=== PATIENT | male | born 1985 | race Caucasian/White ===

== ENCOUNTER 2017-03-12 04:13 | Emergency (ER) | payer OTHER ==
[~2017-03-12] VITALS: Ht 182.9 cm; Wt 81.2 kg
[2017-03-12] MEDS ORDERED: ACETAMINOPHEN 325 MG TABLET PO ONE (05:00)
[2017-03-12] MEDS ORDERED: KETOROLAC 30 MG/1 ML ONE (05:09)
[2017-03-12] MEDS ORDERED: ACETAMINOPHEN 325 MG TABLET ONE (05:14)
[2017-03-12] MEDS ORDERED: KETOROLAC 30 MG/1 ML IVPush ONE (05:30)
[2017-03-12] MEDS ORDERED: SODIUM CHLORIDE 0.9% 1,000ML IVBOLUS ONE (05:30)
[2017-03-12] MEDS ORDERED: SODIUM CHLORIDE FLUSH 10ML SYR IVF ONE (05:30)
[2017-03-12 06:16] LABS: HEMATOCRIT 42.2 % (39.2-51.8); HEMOGLOBIN 14.6 g/dL (13.7-18.0); WHITE BLOOD COUNT 6.4 x10^3/uL (3.4-10)
[2017-03-12 06:22] LABS: ASPARTATE AMINO TRANSFERASE 50 U/L (15-37); BLOOD UREA NITROGEN 11 mg/dL (7-18)
[2017-03-12 06:26] LABS: RAPID INFLUENZA A POSITIVE (Negative)
[2017-03-12 06:27] LABS: RAPID INFLUENZA B Negative (Negative)
[2017-03-12 07:13] VITALS: BP 102/61
== END 2017-03-12 07:22 | disposition home or self-care (01) ==
LOC: ED 05:33
DX: J09.X2 Influenza due to identified novel influenza A virus with other respiratory manifestations (principal)
CPT/HCPCS: 36415; 71010; 80048; 80076; 81003; 82040; 83605; 84145; 85025; 87040; 87400; 96361; 96374; 99285; J1885; J7030

== ENCOUNTER 2018-02-21 08:45 | Emergency (ER) | payer OTHER ==
[~2018-02-21] VITALS: Ht 182.9 cm; Wt 78.0 kg
[2018-02-21 08:53] VITALS: BP 117/74
== END 2018-02-21 09:40 | disposition home or self-care (01) ==
LOC: ED 09:34
DX: L42 Pityriasis rosea (principal)
CPT/HCPCS: 99283

== ENCOUNTER 2018-09-08 02:58 | Emergency (ER) | payer MEDICAID ==
[~2018-09-08] VITALS: Ht 182.9 cm; Wt 79.3 kg
[2018-09-08 03:01] VITALS: BP 124/80
[2018-09-08] MEDS ORDERED: CEFTRIAXONE 250 MG ONE (03:17)
[2018-09-08] MEDS ORDERED: HYDROcodone/APAP 5/325 TABLET ONE (03:28)
[2018-09-08] MEDS ORDERED: CEFTRIAXONE 250 MG IM ONE (03:30)
[2018-09-08] MEDS ORDERED: HYDROcodone/APAP 5/325 TABLET PO ONE (03:30)
[2018-09-08] MEDS ORDERED: AZITHROMYCIN 500 MG TABLET PO ONE (03:30)
--- NOTE | 2018-09-08 03:35 | NUR ---
CLEOPATRA RN: PT MEDICATED WITH ORAL MEDS, IM ROCEPHIN HELD AT THIS TIME DUE TO US BEING PERFORMED. PRIMARY RN NOTIFIED
--- NOTE | 2018-09-08 04:01 | NUR ---
PT ABLE TO PROVIDE URINE SAMPLE. URINE WALKED TO LAB. PT MEDICATED WITH ORDERED MEDS. AWAITING US RESULTS.
[2018-09-08 04:04] LABS: CULTURE INDICATED? YES; MICROSCOPIC AUTO
== END 2018-09-08 04:52 | disposition home or self-care (01) ==
LOC: ED 04:42
DX: N45.1 Epididymitis (principal); F17.200 Nicotine dependence, unspecified, uncomplicated
CPT/HCPCS: 76870; 81001; 87086; 87491; 87591; 96372; 99284; J0696